=== PATIENT | male | born 1965 | race Two or more races ===

== ENCOUNTER 2019-10-26 13:58 | Inpatient (IN) | payer BC, OTHER ==
[~2019-10-26] VITALS: Ht 177.8 cm; Wt 124.1 kg
[2019-10-26] MEDS ORDERED: ONDANSETRON HCL 4 MG/2 ML VIAL IV ONE (18:30)
[2019-10-26] MEDS ORDERED: MORPHINE SULFATE 4 MG/ML SYR/VIAL IV ONE (18:30)
[2019-10-26] MEDS ORDERED: ENOXAPARIN SOD 100 MG/1 ML SYRINGE SC ONE (18:30)
[2019-10-26 19:53] LABS: INR 0.98 (0.9-1.15); Partial Thromboplastin Time 26.3 sec (23.64-32.05)
[2019-10-26 20:21] LABS: Basophils # (auto) 0 uL; Basophils % (auto) 0.5 % (0.0-2.0); Eosinophils # (auto) 0.2 uL; Eosinophils % (auto) 2.1 % (0.0-7.0); Hematocrit 39.8 % (41.0-53.0); Hemoglobin 13.5 g/dL (13.5-17.5); Lymphocytes # (auto) 1.8 uL; Lymphocytes % (auto) 21.8 % (10.0-50.0); Mean Corpuscular Hemoglobin 27.9 pg (28.0-32.0); Mean Corpuscular Hgb Conc. 33.9 g/dL (32.0-36.0); Mean Corpuscular Volume 82.2 fL (80.0-100.0); Monocytes # (auto) 0.7 uL; Monocytes % (auto) 7.9 % (0.0-12.0); Neutrophils # (auto) 5.6 uL; Neutrophils % (auto) 67.7 % (37.0-80.0); Nucleated Red Blood Cells % 0.1 %; Platelet Count (auto) 248 10^3/uL (140-450); Red Blood Cells 4.84 10^6/uL (4.5-5.90); Red Cell Distribution Width 14.1 % (11.8-14.3); White Blood Cell 8.3 10^3/uL (4.4-10.8)
[2019-10-26 20:32] LABS: Albumin 3.1 g/dL (3.4-5.0); BUN/Creatinine Ratio 24.1; Calcium 8.8 mg/dL (8.5-10.1); Potassium 3.5 mmol/L (3.5-5.1)
[2019-10-26 20:35] LABS: Bilirubin, Total 0.6 mg/dL (0.2-1.0); Total Protein 7.4 g/dL (6.4-8.2)
[2019-10-26] MEDS ORDERED: ONDANSETRON HCL 4 MG/2 ML VIAL IV PRN (23:30)
[2019-10-26] MEDS ORDERED: ACETAMINOPHEN 325 MG TAB PO PRN (23:30)
[2019-10-26] MEDS ORDERED: MORPHINE SULFATE 4 MG/ML SYR/VIAL IV PRN (23:30)
[2019-10-26] MEDS ORDERED: DOCUSATE SOD 100 MG CAP PO PRN (23:30)
[2019-10-26] MEDS ORDERED: DEXTROSE (50%) 50ML SYRG IV PRN (23:30)
[2019-10-26] MEDS: InsuLIN REG 1unit/0.01ml Soln (100units/ml) SC SCH (23:59)
[2019-10-26] MEDS: SODIUM CHLORIDE 0.9% 1,000 ML IV SCH (23:59)
[2019-10-26] MEDS: ACCU-CHEK COMFORT CURVE STRIP VI SCH (23:59)
[2019-10-27] MEDS ORDERED: CLOP75TA41 PO (01:25)
[2019-10-27] MEDS ORDERED: GABA300C10 PO (01:25)
[2019-10-27] MEDS ORDERED: HYDR12.56 PO (01:25)
[2019-10-27] MEDS ORDERED: BUPR100T14 PO (01:25)
[2019-10-27] MEDS ORDERED: AMLO10CA33 PO (01:25)
[2019-10-27] MEDS ORDERED: METO-169 PO (01:25)
[2019-10-27] MEDS ORDERED: DAPA1TAB4 PO (01:25)
[2019-10-27] MEDS ORDERED: ATOR1TAB PO (01:25)
[2019-10-27] MEDS ORDERED: LEVO50TA7 PO (01:25)
[2019-10-27] MEDS: ACCU-CHEK COMFORT CURVE STRIP VI SCH ×5 (04:41→20:26)
[2019-10-27] MEDS: InsuLIN REG 1unit/0.01ml Soln (100units/ml) SC SCH ×5 (04:42→20:27)
[2019-10-27 05:21] LABS: Basophils # (auto) 0 uL; Basophils % (auto) 0.6 % (0.0-2.0); Eosinophils # (auto) 0.2 uL; Eosinophils % (auto) 2.3 % (0.0-7.0); Hematocrit 36.4 % (41.0-53.0); Hemoglobin 12.4 g/dL (13.5-17.5); Lymphocytes # (auto) 1.4 uL; Lymphocytes % (auto) 18.9 % (10.0-50.0); Mean Corpuscular Hemoglobin 28.1 pg (28.0-32.0); Mean Corpuscular Volume 82.6 fL (80.0-100.0); Monocytes # (auto) 0.6 uL; Monocytes % (auto) 8.9 % (0.0-12.0); Neutrophils % (auto) 69.3 % (37.0-80.0); Platelet Count (auto) 208 10^3/uL (140-450); Red Cell Distribution Width 14.2 % (11.8-14.3); White Blood Cell 7.3 10^3/uL (4.4-10.8)
[2019-10-27 05:47] LABS: BUN/Creatinine Ratio 23.3; Calcium 8.5 mg/dL (8.5-10.1); Potassium 3.8 mmol/L (3.5-5.1)
[2019-10-27 08:31] VITALS: BP 111/73
[2019-10-27] MEDS ORDERED: ENOXAPARIN SOD 120 MG/0.8 ML SYRINGE SC SCH (10:00)
[2019-10-27 12:46] VITALS: BP 130/82
[2019-10-27] MEDS ORDERED: MORPHINE SULF INJ 2 MG/ML SYRINGE 1ML IV PRN (13:00)
[2019-10-27] MEDS: SODIUM CHLORIDE 0.9% 1,000 ML IV SCH (14:46)
[2019-10-27 16:51] VITALS: BP 121/81
[2019-10-27] MEDS: buPROPion HCL 75 MG TAB PO SCH (18:32)
[2019-10-27] MEDS: ATORVASTATIN 20 MG TAB PO SCH (21:31)
[2019-10-27] MEDS: APIXABAN 5 MG TAB PO SCH (21:31)
[2019-10-27 21:42] VITALS: BP 132/83
[2019-10-28] MEDS: ACCU-CHEK COMFORT CURVE STRIP VI SCH ×7 (01:37→23:50)
[2019-10-28] MEDS: InsuLIN REG 1unit/0.01ml Soln (100units/ml) SC SCH ×7 (04:43→23:50)
[2019-10-28 05:32] VITALS: BP 110/75
[2019-10-28] MEDS: LEVOTHYROXINE SODIUM 50 MCG TAB PO SCH (05:35)
[2019-10-28] MEDS: buPROPion HCL 75 MG TAB PO SCH ×2 (05:35→18:33)
[2019-10-28 05:36] LABS: Basophils # (auto) 0 uL; Basophils % (auto) 0.5 % (0.0-2.0); Eosinophils # (auto) 0.1 uL; Eosinophils % (auto) 2.1 % (0.0-7.0); Hematocrit 37.7 % (41.0-53.0); Hemoglobin 12.7 g/dL (13.5-17.5); Lymphocytes # (auto) 1.3 uL; Lymphocytes % (auto) 20.3 % (10.0-50.0); Mean Corpuscular Hemoglobin 27.5 pg (28.0-32.0); Mean Corpuscular Hgb Conc. 33.6 g/dL (32.0-36.0); Mean Corpuscular Volume 81.8 fL (80.0-100.0); Monocytes # (auto) 0.6 uL; Monocytes % (auto) 8.9 % (0.0-12.0); Neutrophils # (auto) 4.2 uL; Neutrophils % (auto) 68.2 % (37.0-80.0); Nucleated Red Blood Cells % 0.1 %; Platelet Count (auto) 223 10^3/uL (140-450); Red Blood Cells 4.61 10^6/uL (4.5-5.90); Red Cell Distribution Width 13.7 % (11.8-14.3); White Blood Cell 6.2 10^3/uL (4.4-10.8)
[2019-10-28] MEDS: SODIUM CHLORIDE 0.9% 1,000 ML IV SCH (05:40)
[2019-10-28 05:56] LABS: Calcium 8.7 mg/dL (8.5-10.1); Potassium 3.9 mmol/L (3.5-5.1)
[2019-10-28 06:02] LABS: BUN/Creatinine Ratio 21.6; Magnesium 2.2 mg/dL (1.6-2.6)
[2019-10-28 09:00] VITALS: BP 139/87
[2019-10-28] MEDS: APIXABAN 5 MG TAB PO SCH ×2 (09:37→22:27)
[2019-10-28] MEDS ORDERED: METOPROLOL SUCCINATE XL 50 MG TAB PO SCH (10:00)
[2019-10-28 13:00] VITALS: BP 133/87
[2019-10-28] MEDS: HYDROcodone-ACET 5/325MG TAB PO PRN ×2 (16:29→22:32)
[2019-10-28 17:00] VITALS: BP 140/92
[2019-10-28 22:00] VITALS: BP 134/87
[2019-10-28] MEDS: ATORVASTATIN 20 MG TAB PO SCH (22:26)
[2019-10-28] MEDS: METOPROLOL SUCCINATE XL 50 MG TAB PO SCH (22:26)
[2019-10-28 23:40] VITALS: BP 130/79
[2019-10-29] MEDS: ACCU-CHEK COMFORT CURVE STRIP VI SCH ×5 (04:24→20:40)
[2019-10-29] MEDS: InsuLIN REG 1unit/0.01ml Soln (100units/ml) SC SCH ×6 (04:24→20:40)
[2019-10-29 05:20] VITALS: BP 112/70
[2019-10-29] MEDS: LEVOTHYROXINE SODIUM 50 MCG TAB PO SCH (06:12)
[2019-10-29] MEDS: buPROPion HCL 75 MG TAB PO SCH ×2 (06:12→19:00)
[2019-10-29 08:49] VITALS: BP 115/74
[2019-10-29] MEDS: APIXABAN 5 MG TAB PO SCH ×2 (09:28→22:53)
[2019-10-29] MEDS ORDERED: PANT40TA2 PO (12:04)
[2019-10-29] MEDS ORDERED: APIX5TAB PO ×2 (12:04)
[2019-10-29 13:00] VITALS: BP 144/84
[2019-10-29 17:00] VITALS: BP 140/87
[2019-10-29] MEDS: HYDROcodone-ACET 5/325MG TAB PO PRN (17:30)
[2019-10-29 21:34] VITALS: BP 134/76
[2019-10-29] MEDS: ATORVASTATIN 20 MG TAB PO SCH (22:53)
[2019-10-29] MEDS: METOPROLOL SUCCINATE XL 50 MG TAB PO SCH (22:54)
[2019-10-30] MEDS: ACCU-CHEK COMFORT CURVE STRIP VI SCH ×6 (00:26→21:38)
[2019-10-30] MEDS: InsuLIN REG 1unit/0.01ml Soln (100units/ml) SC SCH ×6 (04:28→21:45)
[2019-10-30 04:54] VITALS: BP 129/72
[2019-10-30] MEDS: buPROPion HCL 75 MG TAB PO SCH ×2 (08:28→19:00)
[2019-10-30] MEDS: LEVOTHYROXINE SODIUM 50 MCG TAB PO SCH (08:28)
[2019-10-30 09:00] VITALS: BP 140/80
[2019-10-30] MEDS: APIXABAN 5 MG TAB PO SCH ×2 (10:04→21:37)
[2019-10-30 13:00] VITALS: BP 125/78
[2019-10-30] MEDS ORDERED: DEXTROSE (50%) 50ML SYRG IV PRN (14:30)
[2019-10-30 17:00] VITALS: BP 129/84
[2019-10-30] MEDS: HYDROcodone-ACET 5/325MG TAB PO PRN (17:00)
[2019-10-30] MEDS: ATORVASTATIN 20 MG TAB PO SCH (21:36)
[2019-10-30] MEDS: METOPROLOL SUCCINATE XL 50 MG TAB PO SCH (21:38)
[2019-10-30 22:00] VITALS: BP 112/74
[2019-10-31 05:00] VITALS: BP 111/74
[2019-10-31] MEDS: ACCU-CHEK COMFORT CURVE STRIP VI SCH ×2 (05:16→11:57)
[2019-10-31] MEDS: LEVOTHYROXINE SODIUM 50 MCG TAB PO SCH (05:16)
[2019-10-31] MEDS: buPROPion HCL 75 MG TAB PO SCH (05:16)
[2019-10-31] MEDS: InsuLIN REG 1unit/0.01ml Soln (100units/ml) SC SCH ×2 (05:21→11:57)
[2019-10-31 06:00] LABS: Hematocrit 41.7 % (41.0-53.0)
[2019-10-31 06:23] LABS: BUN/Creatinine Ratio 21.4; Calcium 8.8 mg/dL (8.5-10.1); Potassium 4.2 mmol/L (3.5-5.1)
[2019-10-31 09:00] VITALS: BP 120/87
[2019-10-31] MEDS: APIXABAN 5 MG TAB PO SCH (09:45)
[2019-10-31] MEDS ORDERED: APIX5TAB PO (11:54)
[2019-10-31] MEDS: HYDROcodone-ACET 5/325MG TAB PO PRN (11:59)
[2019-10-31 13:00] VITALS: BP 132/84
[2019-11-03] MEDS ORDERED: APIXABAN 5 MG TAB PO SCH (22:00)
== END 2019-10-31 14:24 | disposition home or self-care (01) | DRG 604 ==
LOC: ER 14:12 → WEST WING 14:13
PROVIDERS: ADMIT Hospitalist; ATTEND Internal Medicine
DX: S80.11XA Contusion of right lower leg, initial encounter (principal); N17.0 Acute kidney failure with tubular necrosis; I82.411 Acute embolism and thrombosis of right femoral vein; E03.9 Hypothyroidism, unspecified; E11.22 Type 2 diabetes mellitus with diabetic chronic kidney disease; E07.9 Disorder of thyroid, unspecified; E66.01 Morbid (severe) obesity due to excess calories; E78.5 Hyperlipidemia, unspecified; I12.9 Hypertensive chronic kidney disease with stage 1 through stage 4 chronic kidney disease, or unspecified chronic kidney disease; N18.9 Chronic kidney disease, unspecified; X58.XXXA Exposure to other specified factors, initial encounter; Z68.39 Body mass index [BMI] 39.0-39.9, adult; I69.398 Other sequelae of cerebral infarction; Y93.89 Activity, other specified; Y92.098 Other place in other non-institutional residence as the place of occurrence of the external cause; Y99.8 Other external cause status; Z79.84 Long term (current) use of oral hypoglycemic drugs
CPT/HCPCS: 36415; 73700; 80048; 80053; 80061; 82962; 83036; 83735; 84443; 85014; 85018; 85025; 85610; 85730; 93971; 96360; G0378; J1815